=== PATIENT | male | born 1940 | race Caucasian/White ===

== ENCOUNTER → 2016-10-03 | Outpatient (CLI) | payer OTHER, MEDICARE ==
[~2016-10-03] MED LIST: ANTIVERT/2525 MG PO; ASPIRIN81 M1; CARTIA XT120 MG PO; COZAAR25 M1 PO; FLOMAX0.4 MG PO; HCTZ; IBUPROFEN; LEVAQUIN750 MG PO; LOSARTAN POTASS25 M1 PO; MOTRIN600 MG PO; PERCOCET 325 MG1 TA5 PO; PROVENTIL0.09 MG/AC IH; VICO75300 PO; ZITHROMAX Z PA250 MG PO
== END | disposition home or self-care (01) ==
LOC: RAD 16:32
DX: R31.9 Hematuria, unspecified (principal); R10.9 Unspecified abdominal pain; Z90.49 Acquired absence of other specified parts of digestive tract

== ENCOUNTER → 2016-11-21 | Outpatient (CLI) | payer OTHER, MEDICARE | END | disposition home or self-care (01) | LOC: CT 11-14 08:00 | DX: N20.0 Calculus of kidney (principal); K57.30 Diverticulosis of large intestine without perforation or abscess without bleeding; R31.9 Hematuria, unspecified; N40.0 Benign prostatic hyperplasia without lower urinary tract symptoms; M47.896 Other spondylosis, lumbar region; Z90.49 Acquired absence of other specified parts of digestive tract ==

== ENCOUNTER 2017-03-20 03:27 | Emergency (ER) | payer OTHER, MEDICARE ==
[~2017-03-20] VITALS: Ht 170.1 cm; Wt 68.0 kg
--- NOTE | ~2017-03-20 | EKG ---
[place], [place] ELECTROCARDIOGRAM REPORT NAME: SHELDON MENDOZA UNIT #: [id number] ROOM: DOCTOR: DENI LOWERY MD BIRTHDATE: [birth year] DOS: 03/20/2017 TIME: 0355 hours. IMPRESSION: 1. Normal sinus rhythm at 66 beats per minute. 2. There is no clear evidence of an inferior wall myocardial infarction. DENI LOWERY MD CM:EKGRPT:ELECTROCARDIOGRAM REPORT [id number] DENI LOWERY MD
[2017-03-20 04:05] LABS: BASO % 0.6 % (0.0-1.0); EOS # 0.2 10*3/uL (0.0-0.4); EOS % 3.4 % (1.0-4.0); HEMATOCRIT 41.8 % (42.0-52.0); HEMOGLOBIN 14.1 g/dl (14.0-18.0); LYMPH # 1.4 10*3/uL (1.3-4.4); LYMPH % 21.1 % (27.0-41.0); MEAN CELL VOLUME 92.5 fl (80.0-94.0); MEAN CORPUSCULAR HGB 31.2 pg (27.0-31.0); MEAN CORPUSCULAR HGB CONC 33.7 g/dl (33.0-37.0); MEAN PLATELET VOLUME 9.7 fl (9.6-12.3); MONO # 0.6 10*3/uL (0.1-1.0); MONO % 8.7 % (3.0-9.0); NEUT # 4.4 10*3/uL (2.3-7.9); NEUT % 65.9 % (47.0-73.0); PLATELET COUNT AUTOMATED 209 10*3/uL (130-400); RED BLOOD COUNT 4.52 10*6/uL (4.50-5.90); RED CELL DISTRI WIDTH 12.5 % (0-14.5); WHITE BLOOD COUNT 6.7 10*3/uL (4.8-10.8)
[2017-03-20 04:17] LABS: ALKALINE PHOSPHATASE 64 U/L (45-117); BUN 28 mg/dl (7-24); CHLORIDE 105 mmol/L (98-107); CREATININE 1.29 mg/dL (0.70-1.30); LIPASE 531 U/L (73-393); POTASSIUM 3.7 mmol/L (3.5-5.1); SGOT/AST 21 IU/L (3-35); SGPT/ALT 31 U/L (12-78); SODIUM 142 mmol/L (136-145); TOTAL PROTEIN 7.1 gm/dL (6.4-8.2)
[2017-03-20 04:18] LABS: TROPONIN I < 0.015 ng/ml (<0.045)
[2017-03-20 04:38] LABS: BILIRUBIN NEGATIVE (NEGATIVE); BLOOD NEGATIVE (NEGATIVE); CLARITY CLEAR (CLEAR); COLOR YELLOW (YELLOW); GLUCOSE NEGATIVE (NEGATIVE); KETONE NEGATIVE (NEGATIVE); LEUKO ESTERASE NEGATIVE (NEGATIVE); NITRITE NEGATIVE (NEGATIVE); SPECIFIC GRAVITY 1.025 (1.005-1.030); UROBILINOGEN 0.2 E.U./dl (0.2-1.0)
[2017-03-20 04:49] LABS: WBC 0-2 wbc/hpf (0-5)
[2017-03-20] MEDS ORDERED: OMNICEF300 MG PO (06:12)
[2017-03-20] MEDS ORDERED: Meclizine25 MG PO (06:12)
== END 2017-03-20 08:45 | disposition home or self-care (01) ==
LOC: ED 03:27
PROVIDERS: Emergency Medicine Emergency Medical Services
DX: H66.91 Otitis media, unspecified, right ear (principal); H60.91 Unspecified otitis externa, right ear; H83.01 Labyrinthitis, right ear; J02.9 Acute pharyngitis, unspecified; R20.2 Paresthesia of skin; Z88.2 Allergy status to sulfonamides; Z88.8 Allergy status to other drugs, medicaments and biological substances; Z79.899 Other long term (current) drug therapy; Z79.02 Long term (current) use of antithrombotics/antiplatelets

== ENCOUNTER 2018-02-24 12:08 | Inpatient (IN) | payer OTHER, MEDICARE ==
[~2018-02-24] VITALS: Ht 170 cm; Wt 74.0 kg
--- NOTE | ~2018-02-24 | EKG ---
[place], [place] ELECTROCARDIOGRAM REPORT NAME: SHELDON MENDOZA UNIT #: [id number] ROOM: 408 DOCTOR: ROXANNE DRAFT REPORT BIRTHDATE: [birth year] [facility] Test Date: 2018-02-24 Test Time: 13:14:22 Pat Name: SHELDON MENDOZA Department: Room: 408 Gender: M [employer] Information Clerk: Adriana Rodriguez : 1940 Requested By: RONALDO APARICIO Order Number: [id number] Reading MD: Alexa Marin MD Measurements Intervals [place] Rate: 91 P: 23 [place]: 189 QRS: -15 QRSD: 85 T: -7 QT: 335 QTc: 413 Interpretive Statements Sinus rhythm Probable left atrial enlargement Inferior infarct, old Consider anterior infarct Baseline wander in lead(s) V2 No previous ECG available for comparison Electronically Signed On 02-28-2018 12:03:42 PDT by Alexa Marin MD CM:EKGRPT:ELECTROCARDIOGRAM REPORT [id number] RONALDO OLIVEIRA DRAFT REPORT RONALDO GARDUNO
[2018-02-24 12:08] VITALS: BP 127/80
[~2018-02-24 12:08] MED LIST changes: +Meclizine25 MG PO; +OMNICEF300 MG PO
[2018-02-24 13:26] LABS: HEMATOCRIT 42.9 % (42.0-52.0); HEMOGLOBIN 14.5 g/dl (14.0-18.0); MEAN CELL VOLUME 94.5 fl (80.0-94.0); MEAN CORPUSCULAR HGB 31.9 pg (27.0-31.0); MEAN CORPUSCULAR HGB CONC 33.8 g/dl (33.0-37.0); MEAN PLATELET VOLUME 9.7 fl (9.6-12.3); PLATELET COUNT AUTOMATED 198 10*3/uL (130-400); RED BLOOD COUNT 4.54 10*6/uL (4.50-5.90); RED CELL DISTRI WIDTH 12.7 % (0-14.5); WHITE BLOOD COUNT 13.7 10*3/uL (4.8-10.8)
[2018-02-24 13:35] LABS: ACT PARTIAL THROMBO TIME 25.8 SECONDS (20.8-31.5); INTERNATIONAL NORM RATIO 0.9 (2.0-3.5)
[2018-02-24 13:47] LABS: ATYPICAL LYMPHS 7 % (0-0); PLATELET SUFFICIENCY NORMAL (NORMAL); TOTAL CELLS COUNTED 100 #CELLS
[2018-02-24 13:48] LABS: ALBUMIN 3.3 gm/dl (3.1-4.5); ALKALINE PHOSPHATASE 65 U/L (45-117); BUN 24 mg/dl (7-24); BURR CELLS MODERATE; CHLORIDE 106 mmol/L (98-107); CREATININE 1.36 mg/dL (0.70-1.30); LIPASE 153 U/L (73-393); POTASSIUM 3.9 mmol/L (3.5-5.1); ROULEAUX SLIGHT; SGOT/AST 17 IU/L (3-35); SGPT/ALT 26 U/L (12-78); SODIUM 139 mmol/L (136-145); TOTAL PROTEIN 7.5 gm/dL (6.4-8.2); TROPONIN I < 0.015 ng/ml (<0.045)
[2018-02-24 14:07] LABS: BILIRUBIN NEGATIVE (NEGATIVE); BLOOD 1+ (NEGATIVE); CLARITY SL CLOUDY (CLEAR); COLOR YELLOW (YELLOW); GLUCOSE NEGATIVE (NEGATIVE); KETONE TRACE (NEGATIVE); LEUKO ESTERASE NEGATIVE (NEGATIVE); NITRITE NEGATIVE (NEGATIVE); SPECIFIC GRAVITY 1.025 (1.005-1.030); UROBILINOGEN 0.2 E.U./dl (0.2-1.0)
[2018-02-24 14:23] LABS: BACTERIA 2+
[2018-02-24 15:22] VITALS: BP 133/75
[2018-02-24 16:34] VITALS: BP 130/78
[2018-02-24 16:55] VITALS: BP 146/78
[2018-02-24 20:00] VITALS: BP 101/54
[2018-02-25] VITALS: BP 90/47
[2018-02-25 02:05] VITALS: BP 122/62
[2018-02-25 07:30] LABS: BASO % 0.1 % (0.0-1.0); EOS # 0.1 10*3/uL (0.0-0.4); EOS % 0.6 % (1.0-4.0); HEMATOCRIT 34.2 % (42.0-52.0); HEMOGLOBIN 11.5 g/dl (14.0-18.0); LYMPH # 0.8 10*3/uL (1.3-4.4); LYMPH % 9.3 % (27.0-41.0); MEAN CELL VOLUME 94.2 fl (80.0-94.0); MEAN CORPUSCULAR HGB 31.7 pg (27.0-31.0); MEAN CORPUSCULAR HGB CONC 33.6 g/dl (33.0-37.0); MEAN PLATELET VOLUME 10.2 fl (9.6-12.3); MONO # 1.4 10*3/uL (0.1-1.0); MONO % 16.3 % (3.0-9.0); NEUT # 6.2 10*3/uL (2.3-7.9); NEUT % 73.5 % (47.0-73.0); PLATELET COUNT AUTOMATED 170 10*3/uL (130-400); RED BLOOD COUNT 3.63 10*6/uL (4.50-5.90); RED CELL DISTRI WIDTH 12.5 % (0-14.5); WHITE BLOOD COUNT 8.5 10*3/uL (4.8-10.8)
[2018-02-25 07:51] LABS: BUN 19 mg/dl (7-24); CHLORIDE 109 mmol/L (98-107); CHOLESTEROL 115 mg/dL (<200); CREATININE 1.19 mg/dL (0.70-1.30); FREE T4 1.07 ng/dl (0.76-1.46); HDL CHOLESTEROL 35 mg/dl (40-60); LDL CHOLESTEROL 67 mg/dL (9-159); PHOSPHOROUS 1.8 mg/dL (2.5-4.9); POTASSIUM 4.1 mmol/L (3.5-5.1); SODIUM 140 mmol/L (136-145); TRIGLYCERIDES 67 mg/dl (<150); VLDL CHOLESTEROL 13 mg/dL (6-40)
[2018-02-25 07:57] LABS: THYROID STIM HORMONE (HS) 0.691 uIU/ml (0.358-4.75)
[2018-02-25 08:00] VITALS: BP 125/64
[2018-02-25 09:16] LABS: VITAMIN D, 25-HYDROXY 29.8 ng/mL (30-100)
[2018-02-25 12:00] VITALS: BP 121/68
[2018-02-25] MEDS ORDERED: LEVAQUIN750 M1 PO (12:14)
== END 2018-02-25 13:15 | disposition home or self-care (01) | DRG 871 ==
LOC: ED 12:08 → 4E 16:13 → EDHOLD 16:13 → 4E 16:34
PROVIDERS: Internal Medicine; Physician Assistant
DX: A41.9 Sepsis, unspecified organism (principal); J18.9 Pneumonia, unspecified organism; E83.41 Hypermagnesemia; E80.6 Other disorders of bilirubin metabolism; M19.90 Unspecified osteoarthritis, unspecified site; N18.3 Chronic kidney disease, stage 3 (moderate); R79.82 Elevated C-reactive protein (CRP); D53.9 Nutritional anemia, unspecified; E83.39 Other disorders of phosphorus metabolism; I12.9 Hypertensive chronic kidney disease with stage 1 through stage 4 chronic kidney disease, or unspecified chronic kidney disease; Z96.659 Presence of unspecified artificial knee joint; Z88.2 Allergy status to sulfonamides; Z88.8 Allergy status to other drugs, medicaments and biological substances; Z79.899 Other long term (current) drug therapy; Z79.82 Long term (current) use of aspirin; Z98.52 Vasectomy status; Z90.89 Acquired absence of other organs; Z82.3 Family history of stroke; Z82.0 Family history of epilepsy and other diseases of the nervous system; Z80.8 Family history of malignant neoplasm of other organs or systems; Z87.442 Personal history of urinary calculi; Z90.49 Acquired absence of other specified parts of digestive tract; Z84.89 Family history of other specified conditions

== ENCOUNTER → 2018-04-07 | Outpatient (CLI) | payer OTHER, MEDICARE ==
[~2018-04-07] MED LIST changes: +LEVAQUIN750 M1 PO
== END | disposition home or self-care (01) ==
LOC: RAD 18:49
DX: R91.8 Other nonspecific abnormal finding of lung field (principal); Z87.01 Personal history of pneumonia (recurrent)

== ENCOUNTER → 2018-05-22 | Outpatient (CLI) | payer OTHER ==
[~2018-05-22] MED LIST changes: +MOTRIN 400 MG E4 TAB PO; -MOTRIN600 MG PO
== END | disposition home or self-care (01) ==
LOC: CT 08:04
DX: R91.8 Other nonspecific abnormal finding of lung field (principal); I25.10 Atherosclerotic heart disease of native coronary artery without angina pectoris; D71 Functional disorders of polymorphonuclear neutrophils

== ENCOUNTER → 2018-05-29 | Day surgery (SDC) | payer OTHER ==
[~2018-05-29] VITALS: Ht 170.1 cm; Wt 73.9 kg
--- NOTE | ~2018-05-29 | PROC NOTE ---
[place], [place] PROCEDURE NOTE NAME: SHELDON MENDOZA [facility] #: [id number] UNIT #: [id number] ROOM: DOCTOR: OSCAR REYNOSO MD,GUILLERMO BIRTHDATE: [birth year] DOS: 05/29/2018 PROCEDURE: Bronchoscopy. PRIMARY CARE PHYSICIAN: Vinicio Garcia MD PREOPERATIVE DIAGNOSIS: Small subsegmental atelectasis, right middle lobe. POSTOPERATIVE DIAGNOSES: Narrowed segment of the right middle was noted. There were no discrete endobronchial obstructive lesions. DESCRIPTION OF PROCEDURE: Informed consent obtained with the patient. The patient brought to the OR and placed in supine position. Conscious sedation was induced by the Anesthesia Department. After achieving proper sedation, airway introduced into the mouth. Bronchoscope advanced through the airway into laryngeal area. Epiglottis and vocal cords were seen. Vocal cords were moving symmetrically with movements. Bronchoscope advanced via the vocal cord and tracheal lumen. Tracheal lumen was noted normal. Left upper, lingula, left lower lobe, right upper and the right lower lobe bronchial opening were all noted patent except the ones subsegment of the right middle lobe bronchus lateral subsegment was noted with possible extrinsic compression and not open. Other bronchial opening were noted patent. No biopsy was done. Procedure well tolerated by the patient without difficulty. Postoperative findings were discussed with the patient later on and will be assessed in the office for further assessment as well as the current problem and assessment. GUILLERMO MOORE MD CM:PROCNOTE:PROCEDURE NOTE [id number] GUILLERMO REYNOSO MD
[2018-05-29 07:30] VITALS: BP 137/81
[2018-05-29 08:50] VITALS: BP 124/73
[2018-05-29 09:05] VITALS: BP 129/73
[2018-05-29 09:20] VITALS: BP 121/69
[2018-05-30 16:09] LABS: ACID FAST SPEC PROCESSING Concentration (.)
[2018-07-10 11:06] LABS: ACID FAST CULTURE Negative (.)
== END | disposition home or self-care (01) ==
LOC: SDC 05-28 12:30
PROVIDERS: Internal Medicine Critical Care Medicine
DX: J98.4 Other disorders of lung (principal); I10 Essential (primary) hypertension; F15.90 Other stimulant use, unspecified, uncomplicated; E66.9 Obesity, unspecified; Z68.26 Body mass index [BMI] 26.0-26.9, adult; Z79.1 Long term (current) use of non-steroidal anti-inflammatories (NSAID); Z79.899 Other long term (current) drug therapy; Z88.2 Allergy status to sulfonamides; Z88.8 Allergy status to other drugs, medicaments and biological substances; Z87.01 Personal history of pneumonia (recurrent); Z90.49 Acquired absence of other specified parts of digestive tract; Z96.653 Presence of artificial knee joint, bilateral; Z98.890 Other specified postprocedural states; Z72.89 Other problems related to lifestyle; Z80.6 Family history of leukemia; Z88.1 Allergy status to other antibiotic agents

== ENCOUNTER 2018-06-15 05:16 | Emergency (ER) | payer OTHER ==
[~2018-06-15] VITALS: Ht 170.1 cm; Wt 72.6 kg
--- NOTE | ~2018-06-15 | EKG ---
[place], [place] ELECTROCARDIOGRAM REPORT NAME: SHELDON MENDOZA UNIT #: [id number] ROOM: DOCTOR: EPIPHANY DRAFT REPORT BIRTHDATE: [birth year] [facility] Test Date: 2018-06-15 Test Time: 05:57:33 Pat Name: SHELDON MENDOZA Department: Room: Gender: Manager Fire: : 1940 Requested By: RAZ WILHELM Order Number: [id number] Reading MD: Tata Braswell MD Measurements Intervals [place] Rate: 67 P: 23 [place]: 218 QRS: -9 QRSD: 93 T: -2 QT: 380 QTc: 401 Interpretive Statements Sinus rhythm Borderline prolonged [place] interval- first degree block Inferior infarct, old Baseline wander in lead(s) I,III,aVL,V1,V5,V6 Compared to ECG 02/24/2018 13:14:22 No significant changes Electronically Signed On 06-18-2018 14:02:40 PST by Tata Braswell MD CM:EKGRPT:ELECTROCARDIOGRAM REPORT [id number] RAZ MCNEIL DRAFT REPORT RAZ WILHELM DO
[2018-06-15 06:06] LABS: BASO # 0.1 10*3/uL (0.0-0.1); BASO % 0.8 % (0.0-1.0); EOS # 0.3 10*3/uL (0.0-0.4); EOS % 4.4 % (1.0-4.0); HEMOGLOBIN 15.3 g/dl (14.0-18.0); LYMPH # 1.7 10*3/uL (1.3-4.4); LYMPH % 27.1 % (27.0-41.0); MEAN CELL VOLUME 94.5 fl (80.0-94.0); MEAN CORPUSCULAR HGB 32.1 pg (27.0-31.0); MEAN PLATELET VOLUME 9.3 fl (9.6-12.3); MONO # 0.7 10*3/uL (0.1-1.0); MONO % 11.7 % (3.0-9.0); NEUT # 3.5 10*3/uL (2.3-7.9); NEUT % 55.7 % (47.0-73.0); PLATELET COUNT AUTOMATED 237 10*3/uL (130-400); RED BLOOD COUNT 4.76 10*6/uL (4.50-5.90); RED CELL DISTRI WIDTH 12.9 % (0-14.5); WHITE BLOOD COUNT 6.3 10*3/uL (4.8-10.8)
[2018-06-15 06:20] LABS: INTERNATIONAL NORM RATIO 0.9 (2.0-3.5)
[2018-06-15 06:25] LABS: ALBUMIN 3.9 gm/dl (3.1-4.5); BUN 31 mg/dl (7-24); CHLORIDE 110 mmol/L (98-107); CREATININE 1.26 mg/dL (0.70-1.30); POTASSIUM 3.8 mmol/L (3.5-5.1); SGOT/AST 19 IU/L (3-35); SGPT/ALT 32 U/L (12-78); SODIUM 142 mmol/L (136-145); TOTAL PROTEIN 7.1 gm/dL (6.4-8.2); TROPONIN I < 0.015 ng/ml (<0.045)
[2018-06-15 06:36] LABS: ALKALINE PHOSPHATASE 64 U/L (45-117)
== END 2018-06-15 08:33 | disposition home or self-care (01) ==
LOC: ED 05:16
PROVIDERS: Emergency Medicine
DX: F41.9 Anxiety disorder, unspecified (principal); R53.1 Weakness; R42 Dizziness and giddiness; R25.1 Tremor, unspecified; I12.9 Hypertensive chronic kidney disease with stage 1 through stage 4 chronic kidney disease, or unspecified chronic kidney disease; N18.3 Chronic kidney disease, stage 3 (moderate); Z88.2 Allergy status to sulfonamides; Z88.8 Allergy status to other drugs, medicaments and biological substances; Z79.82 Long term (current) use of aspirin; Z79.899 Other long term (current) drug therapy; Z87.442 Personal history of urinary calculi; Z90.49 Acquired absence of other specified parts of digestive tract

== ENCOUNTER → 2018-08-11 | Outpatient (CLI) | payer OTHER | END | disposition home or self-care (01) | LOC: US 07-31 16:00 | DX: R91.1 Solitary pulmonary nodule (principal) ==

== ENCOUNTER → 2018-08-20 | Outpatient (CLI) | payer OTHER | END | disposition home or self-care (01) | LOC: RAD 07:51 | DX: E04.1 Nontoxic single thyroid nodule (principal); R13.10 Dysphagia, unspecified ==

== ENCOUNTER → 2018-11-14 | Outpatient (CLI) | payer OTHER | END | disposition home or self-care (01) | LOC: MRI 11:29 | DX: G93.89 Other specified disorders of brain (principal); J32.0 Chronic maxillary sinusitis ==

== ENCOUNTER 2018-12-31 04:45 | Emergency (ER) | payer OTHER ==
[~2018-12-31] VITALS: Ht 170.1 cm; Wt 70.8 kg
--- NOTE | ~2018-12-31 | EKG ---
[place], [place] ELECTROCARDIOGRAM REPORT NAME: SHELDON MNEDOZA UNIT #: [id number] ROOM: DOCTOR: EPIPHANY DRAFT REPORT BIRTHDATE: [birth year] [facility] Test Date: 2018-12-31 Test Time: 05:04:41 Pat Name: SHELDON MENDOZA Department: ED Room: Gender: Store Mgr: Giovani Hawley : 1940 Requested By: SAMI HUNTER Order Number: [id number] Reading MD: Tata Braswell MD Measurements Intervals [place] Rate: 90 P: 23 [place]: 216 QRS: -15 QRSD: 90 T: -5 QT: 361 QTc: 442 Interpretive Statements Sinus rhythm Borderline prolonged [place] interval Inferior infarct, old Consider anterior infarct Baseline wander in lead(s) V2 Compared to ECG 06/15/2018 05:57:33 No significant changes Electronically Signed On 01-12-2019 7:31:32 PDT by Tata Braswell MD CM:EKGRPT:ELECTROCARDIOGRAM REPORT [id number] SAMI MCNEIL DRAFT REPORT SAMI HUNTER DO
== END 2018-12-31 05:51 | disposition left against medical advice (07) ==
LOC: ED 04:45
DX: R53.1 Weakness (principal); M79.604 Pain in right leg; R10.31 Right lower quadrant pain; I12.9 Hypertensive chronic kidney disease with stage 1 through stage 4 chronic kidney disease, or unspecified chronic kidney disease; N18.3 Chronic kidney disease, stage 3 (moderate); Z90.49 Acquired absence of other specified parts of digestive tract; Z88.2 Allergy status to sulfonamides; Z88.8 Allergy status to other drugs, medicaments and biological substances; Z79.82 Long term (current) use of aspirin; Z79.899 Other long term (current) drug therapy

== ENCOUNTER 2019-04-11 04:27 | Emergency (ER) | payer OTHER ==
[~2019-04-11] VITALS: Ht 170.1 cm; Wt 74.8 kg
--- NOTE | ~2019-04-11 | EKG ---
[place], [place] ELECTROCARDIOGRAM REPORT NAME: SHELDON MENDOZA UNIT #: [id number] ROOM: DOCTOR: EPIPHANY DRAFT REPORT BIRTHDATE: [birth year] [facility] Test Date: 2019-04-11 Test Time: 04:31:06 Pat Name: SHELDON MENDOZA Department: Room: Gender: Employee Relations Director: : 1940 Requested By: MIRIAM MISTRY Order Number: [id number] Reading MD: Gustavo Fisher MD Measurements Intervals [place] Rate: 81 P: 44 [place]: 216 QRS: -9 QRSD: 94 T: 23 QT: 379 QTc: 440 Interpretive Statements Sinus rhythm Borderline prolonged [place] interval Abnormal R-wave progression, late transition Inferior infarct, old Low voltage Compared to ECG 12/31/2018 05:04:41 No significant changes Electronically Signed On 04-12-2019 7:58:52 PST by Gustavo Fisher MD CM:EKGRPT:ELECTROCARDIOGRAM REPORT [id number] MIRIAM MISTRY MD EPIPHANY DRAFT REPORT MIRIAM MISTRY MD
[2019-04-11 05:09] LABS: BASO # 0.1 10*3/uL (0.0-0.1); BASO % 0.9 % (0.0-1.0); EOS # 0.4 10*3/uL (0.0-0.4); EOS % 5.8 % (1.0-4.0); HEMOGLOBIN 14.4 g/dl (14.0-18.0); LYMPH # 1.6 10*3/uL (1.3-4.4); LYMPH % 23.2 % (27.0-41.0); MEAN CELL VOLUME 97.3 fl (80.0-94.0); MEAN CORPUSCULAR HGB 31.9 pg (27.0-31.0); MEAN CORPUSCULAR HGB CONC 32.7 g/dl (33.0-37.0); MEAN PLATELET VOLUME 9.7 fl (9.6-12.3); MONO # 0.8 10*3/uL (0.1-1.0); MONO % 11.1 % (3.0-9.0); NEUT # 4.1 10*3/uL (2.3-7.9); NEUT % 58.6 % (47.0-73.0); PLATELET COUNT AUTOMATED 236 10*3/uL (130-400); RED BLOOD COUNT 4.52 10*6/uL (4.50-5.90); RED CELL DISTRI WIDTH 13.1 % (0-14.5); WHITE BLOOD COUNT 6.9 10*3/uL (4.8-10.8)
[2019-04-11 05:24] LABS: ACT PARTIAL THROMBO TIME 23.9 SECONDS (20.0-32.1); INTERNATIONAL NORM RATIO 0.9 (2.0-3.5)
[2019-04-11 05:29] LABS: ALBUMIN 3.6 gm/dl (3.1-4.5); BUN 27 mg/dl (7-24); CHLORIDE 112 mmol/L (98-107); CREATININE 1.33 mg/dL (0.70-1.30); POTASSIUM 3.7 mmol/L (3.5-5.1); SGOT/AST 37 IU/L (3-35); SGPT/ALT 48 U/L (12-78); SODIUM 145 mmol/L (136-145); TOTAL PROTEIN 6.7 gm/dL (6.4-8.2)
[2019-04-11 05:31] LABS: ALKALINE PHOSPHATASE 62 U/L (45-117)
[2019-04-11 05:33] LABS: TROPONIN I < 0.015 ng/ml (<0.045)
[2019-04-11] MEDS ORDERED: ATIVAN0.5 MG PO (06:28)
== END 2019-04-11 06:54 | disposition home or self-care (01) ==
LOC: ED 04:27
PROVIDERS: Emergency Medicine Emergency Medical Services
DX: R06.02 Shortness of breath (principal); F41.1 Generalized anxiety disorder; M19.90 Unspecified osteoarthritis, unspecified site; I12.9 Hypertensive chronic kidney disease with stage 1 through stage 4 chronic kidney disease, or unspecified chronic kidney disease; N18.3 Chronic kidney disease, stage 3 (moderate); K21.9 Gastro-esophageal reflux disease without esophagitis; I10 Essential (primary) hypertension; Z88.2 Allergy status to sulfonamides; Z88.8 Allergy status to other drugs, medicaments and biological substances; Z79.899 Other long term (current) drug therapy; Z79.82 Long term (current) use of aspirin

== ENCOUNTER → 2019-05-29 | Outpatient (CLI) | payer OTHER ==
[~2019-05-29] MED LIST changes: +ATIVAN0.5 MG PO; +IBU400 M1 PO; +LIPITOR20 MG PO; +PLAVIX75 M1 PO
--- NOTE | 2019-05-29 09:15 | NUR ---
INFORMED CONSENT OBTAINED FOR LEXISCAN NUCLEAR STRESS TEST WITH DR. HARTLEY. RESTING EKG SINUS QIANA WITH A HR OF 54 WITH BP OF 114/72. LUNGS CLEAR WITH SPO2 OF 96% ON ROOM AIR. PT COMPLETED A 1:00 LEXISCAN PROTOCOL RECEIVING LEXISCAN 0.4 MG IV OVER 10 SECONDS. HAD NO CHEST PAIN OR ANY EKG CHANGES. DID C/O FEELING OF SHORTNESS OF BREATH THAT WAS RELIEVED IN RECOVERY. HAD A PEAK HR OF 76 WITH BP OF 108/68. LAST RECOVERY HR OF 68 WITH BP OF 112/70. AWAITING SCANNING IN STABLE CONDITION.
== END | disposition home or self-care (01) ==
LOC: CARD 00:23
DX: R06.09 Other forms of dyspnea (principal)

== ENCOUNTER 2020-10-19 06:28 | Emergency (ER) | payer OTHER ==
[~2020-10-19] VITALS: Ht 170.1 cm; Wt 73.9 kg
[2020-10-19 06:52] LABS: BASO # 0.1 10*3/uL (0.0-0.1); BASO % 0.7 % (0.0-1.0); EOS # 0.4 10*3/uL (0.0-0.4); EOS % 4.8 % (1.0-4.0); HEMATOCRIT 42.6 % (42.0-52.0); LYMPH # 2.6 10*3/uL (1.3-4.4); LYMPH % 29.8 % (27.0-41.0); MEAN CELL VOLUME 95.1 fl (80.0-94.0); MEAN CORPUSCULAR HGB 31.7 pg (27.0-31.0); MEAN CORPUSCULAR HGB CONC 33.3 g/dl (33.0-37.0); MEAN PLATELET VOLUME 9.8 fl (9.6-12.3); MONO # 0.8 10*3/uL (0.1-1.0); MONO % 9.4 % (3.0-9.0); NEUT # 4.7 10*3/uL (2.3-7.9); NEUT % 55.1 % (47.0-73.0); PLATELET COUNT AUTOMATED 264 10*3/uL (130-400); RED BLOOD COUNT 4.48 10*6/uL (4.50-5.90); RED CELL DISTRI WIDTH 12.9 % (0-14.5); WHITE BLOOD COUNT 8.6 10*3/uL (4.8-10.8)
[2020-10-19 07:27] LABS: ALBUMIN 3.4 gm/dl (3.1-4.5); ALKALINE PHOSPHATASE 63 U/L (45-117); BUN 34 mg/dl (7-24); CHLORIDE 111 mmol/L (98-107); CREATININE 1.48 mg/dL (0.70-1.30); POTASSIUM 4.1 mmol/L (3.5-5.1); SGOT/AST 19 IU/L (3-35); SGPT/ALT 27 U/L (12-78); SODIUM 143 mmol/L (136-145); TOTAL PROTEIN 6.4 gm/dL (6.4-8.2)
[2020-10-19 07:31] LABS: TROPONIN I < 0.015 ng/ml (<0.045)
== END 2020-10-19 08:46 | disposition home or self-care (01) ==
LOC: ED 06:28
PROVIDERS: Emergency Medicine
DX: I10 Essential (primary) hypertension (principal); Z88.2 Allergy status to sulfonamides; Z88.8 Allergy status to other drugs, medicaments and biological substances; Z79.899 Other long term (current) drug therapy; Z98.890 Other specified postprocedural states

== ENCOUNTER 2021-05-16 01:45 | Emergency (ER) | payer OTHER, MEDICARE ==
[~2021-05-16] VITALS: Ht 170.1 cm; Wt 70.3 kg
[2021-05-16 02:32] LABS: BASO % 0.6 % (0.0-1.0); EOS # 0.4 10*3/uL (0.0-0.4); EOS % 5.3 % (1.0-4.0); HEMATOCRIT 38.6 % (42.0-52.0); LYMPH # 1.4 10*3/uL (1.3-4.4); LYMPH % 19.9 % (27.0-41.0); MEAN CELL VOLUME 93.5 fl (80.0-94.0); MEAN CORPUSCULAR HGB 32.2 pg (27.0-31.0); MEAN CORPUSCULAR HGB CONC 34.5 g/dl (33.0-37.0); MEAN PLATELET VOLUME 9.7 fl (9.6-12.3); MONO # 0.8 10*3/uL (0.1-1.0); MONO % 11.4 % (3.0-9.0); NEUT # 4.4 10*3/uL (2.3-7.9); NEUT % 62.4 % (47.0-73.0); PLATELET COUNT AUTOMATED 253 10*3/uL (130-400); RED BLOOD COUNT 4.13 10*6/uL (4.50-5.90)
[2021-05-16 02:43] LABS: BUN 29 mg/dl (7-24); CHLORIDE 109 mmol/L (98-107); POTASSIUM 4.1 mmol/L (3.5-5.1); SODIUM 141 mmol/L (136-145)
== END 2021-05-16 03:09 | disposition home or self-care (01) ==
LOC: ED 01:45
PROVIDERS: Internal Medicine
DX: M79.604 Pain in right leg (principal); N17.9 Acute kidney failure, unspecified; Z88.2 Allergy status to sulfonamides; Z88.8 Allergy status to other drugs, medicaments and biological substances; Z79.899 Other long term (current) drug therapy

== ENCOUNTER → 2021-05-16 | Outpatient (CLI) | payer OTHER, MEDICARE | END | disposition home or self-care (01) | LOC: US 11:28 | PROVIDERS: ATTEND Internal Medicine | DX: M79.661 Pain in right lower leg (principal); N40.0 Benign prostatic hyperplasia without lower urinary tract symptoms; G47.62 Sleep related leg cramps ==

== ENCOUNTER 2023-11-07 03:59 | Emergency (ER) | payer OTHER ==
[~2023-11-07] VITALS: Wt 75.7 kg
[2023-11-07] MEDS ORDERED: LISINOPRIL5 MG PO (04:17)
[2023-11-07] MEDS ORDERED: ASPIRIN CHEWABL81 MG PO (04:18)
[2023-11-07 04:47] LABS: BASO # 0.1 10*3/uL (0.0-0.1); BASO % 0.7 % (0.0-1.0); EOS # 0.4 10*3/uL (0.0-0.4); EOS % 5.1 % (1.0-4.0); HEMATOCRIT 41.4 % (42.0-52.0); LYMPH # 1.4 10*3/uL (1.3-4.4); LYMPH % 19.6 % (27.0-41.0); MEAN CELL VOLUME 97.6 fl (80.0-94.0); MEAN CORPUSCULAR HGB 32.5 pg (27.0-31.0); MEAN CORPUSCULAR HGB CONC 33.3 g/dl (33.0-37.0); MEAN PLATELET VOLUME 9.8 fl (9.6-12.3); MONO # 0.9 10*3/uL (0.1-1.0); MONO % 11.9 % (3.0-9.0); NEUT # 4.5 10*3/uL (2.3-7.9); NEUT % 62.4 % (47.0-73.0); PLATELET COUNT AUTOMATED 216 10*3/uL (130-400); RED BLOOD COUNT 4.24 10*6/uL (4.50-5.90); RED CELL DISTRI WIDTH 12.7 % (0-14.5); WHITE BLOOD COUNT 7.2 10*3/uL (4.8-10.8)
[2023-11-07 05:06] LABS: BUN 25 mg/dl (9-23); CHLORIDE 110 mmol/L (98-107); POTASSIUM 4.6 mmol/L (3.4-5.1)
[2023-11-07] MEDS ORDERED: Meclizine Hydrochloride 25 MG TAB PO ONE ×2 (08:05)
[2023-11-07] MEDS ORDERED: ANTIVERT25 M2 PO (08:10)
== END 2023-11-07 08:01 | disposition home or self-care (01) ==
LOC: ED 03:59
PROVIDERS: Internal Medicine
DX: H81.10 Benign paroxysmal vertigo, unspecified ear (principal); D53.9 Nutritional anemia, unspecified; I44.0 Atrioventricular block, first degree; I10 Essential (primary) hypertension; K21.9 Gastro-esophageal reflux disease without esophagitis; Z87.442 Personal history of urinary calculi; Z88.2 Allergy status to sulfonamides; Z88.8 Allergy status to other drugs, medicaments and biological substances; Z90.49 Acquired absence of other specified parts of digestive tract; Z90.89 Acquired absence of other organs; Z98.890 Other specified postprocedural states